=== PATIENT | male | born 1950 | race Caucasian/White ===

== ENCOUNTER 2017-06-08 10:11 | Day surgery (SDC) | payer OTHER ==
[2017-06-07 15:42] VITALS: BMI 23.3
--- NOTE | 2017-06-08 12:01 | HP ---
Satellite H - Chief Complaint Chief Complaint: right ulna fx - Past Medical History Allergies/Adverse Reactions: Allergies Allergy/AdvReac Type Severity Reaction Status Date / Time No Known Allergies Allergy Verified 06/07/17 15:12 - Current Medications Current Medications: Home Medications Medication Instructions Recorded Allopurinol [Zyloprim -] 100 mg PO DAILY 06/07/17 Cholecalciferol (Vitamin D3) 5,000 unit PO WEEKLY 06/07/17 [Vitamin D3] [place]-3 Fatty Acids [[place]ley-3] 300 mg PO 06/07/17 Tamsulosin HCl 0.4 mg PO 06/07/17 Hydrocodone/Acetaminophen [[place] 1 each PO Q6H PRN #40 tablet MDD 4 06/08/17 5-325 Tablet] Satellite Physical Exam - Physical Examination Vital Signs: Vital Signs Period Temp Pulse Resp BP Sys/Gonzalez Pulse Ox Last 24 Hr 99-99 General Appearance: Well Nourished, Well Developed, Alert & Oriented x3 ENT: Clear Lung: Normal air movement Heart: Regular rate & rhythm Extremities: Other (right forearm- + swelling, + ttp, nvi xrays show dsiplaced ulna fx) Neurological: Intact, Alert, Oriented Satellite Impression/Plan - Impression/Plan Impression: right ulna fx Operative Procedure: right ulna orif Date to be Performed: 06/08/17
[2017-06-08] MEDS ORDERED: ROPIVACAINE HCL 0.5% 30ML VIAL ONE (13:01)
[2017-06-08] MEDS ORDERED: DEXAMETHASONE SOD PHOSPHATE/PF 10 MG/ML SDV ONE (13:01)
[2017-06-08] MEDS ORDERED: LIDOCAINE HCL 1%, 10 MG/ML (20ML VIAL) ONE (13:41)
[2017-06-08] MEDS ORDERED: BUPIVACAINE HCL/PF 0.5% (5MG/ML) 10 ML VIAL ONE (13:41)
--- NOTE | 2017-06-08 14:49 | OP ---
Operative Note - Note: Operative Date: 06/08/17 Pre-Operative Diagnosis: right ulna fracture Operation: ORIF ulnar shaft Implants: [place] titanium low profile plate, 6 screws Surgeon: Nickolas Liang Share Dairy Farmer: Arun Cates Anesthesiologist/REFUND CLERK: Erick Powell Anesthesia: Local, MAC Estimated Blood Loss (mls): 0 Drains, Volume Out (mls): 0 Blood Volume Replaced (mls): 0 Fluid Volume Replaced (mls): 700 Operative Report Dictated: Yes
[2017-06-08] MEDS ORDERED: LABETALOL HCL 5 MG/1 ML (100MG/20 ML VIAL) ONE (14:54)
[2017-06-08] MEDS ORDERED: PROMETHAZINE HCL 25 MG/1 ML VIAL IVPUSH PRN (15:00)
[2017-06-08] MEDS ORDERED: oxyCODONE HCL 5 MG TABLET PO PRN (15:00)
[2017-06-08] MEDS ORDERED: LACTATED RINGERS SOLUTION 1,000 ML IV SCH (15:00)
[2017-06-08] MEDS ORDERED: ONDANSETRON 4 MG/2 ML VIAL IVPUSH PRN (15:00)
[2017-06-08] MEDS ORDERED: LABETALOL HCL 5 MG/1 ML (100MG/20 ML VIAL) IVPUSH ONE (15:06)
[2017-06-08] MEDS ORDERED: oxyCODONE HCL 5 MG TABLET PO ONE (17:04)
[2017-06-08] MEDS ORDERED: oxyCODONE HCL 5 MG TABLET ONE (17:05)
[2017-06-08 18:26] VITALS: BP 144/78; PULSE 98; TEMP 99
--- NOTE | 2017-06-10 14:21 | OP ---
DATE OF OPERATION: 06/08/2017 DATE OF DICTATION: 06/08/2017 PREOPERATIVE DIAGNOSIS: Right ulna fracture. POSTOPERATIVE DIAGNOSIS: Right ulna fracture. PROCEDURE: Open reduction internal fixation, right ulna. SURGEON: Delpihne Osorio M.D. LIPCOAT SPRAYER: Dontae Page ANESTHESIOLOGIST: Erick Powell M.D. ANESTHESIA: Right interscalene block. DRAINS: None. COMPLICATIONS: None. SPECIMEN: None. IMPLANTS USED: [place] low-profile straight plate, 6 hole, with 3 mL graft on bone graft, 5 screws and 1 lag screw. BLOOD LOSS: None. BLOOD GIVEN: None. FLUID REPLACEMENT: 700 mL. INDICATION: This patient is a 66-year-old right hand dominant male who sustained a right displaced ulna shaft fracture. After understanding the potential risks, complications, alternatives, benefits to surgery versus nonsurgical treatment, the patient elected to undergo this procedure. He understands the risk of nonunion, need for additional surgery, risk of infection, risk of need for plate removal and other potential risks and complications were discussed. DESCRIPTION OF PROCEDURE: Patient was brought to operating room, peripheral IV placed, IV sedation given, 1 g of IV Ancef was given, a right interscalene block was performed. The right upper extremity was prepped and draped in sterile fashion, elevated, exsanguinated with Esmarch bandage, tourniquet inflated to 250 mmHg. A longitudinal incision was marked out and made with a marking pen over the distal ulna. Subcutaneous hemostasis achieved with a bipolar cautery. Dissection done with Metzenbaum scissors to the lateral aspect of the ulna. Periosteal dissection was done with a number 15 scalpel blade and a periosteal elevator. This exposed the fracture site. It was irrigated and washed out. Two alligator forceps were utilized to joystick the fracture until it came together quite nicely. A [place] titanium low profile straight 5-hole plate was placed onto the fracture site. It then dented a bit distally to contour better. Did fit better. It was pinned in place with 2 temporary K-wires and x-rays were taken that showed excellent reduction of the fracture in position of the hardware. Next the plate was removed, the fracture opened again, and 3 mL of Drury putty was placed in and around the ulnar shaft fracture. The plate was then reapplied and held in place with K-wires. X-rays were taken again, and there was excellent anatomic reduction of the fracture, and the hardware was in excellent position. Next I put in a lag screw, it was 22 mm in length, 3.5 mm in diameter, fully threaded in the standard fashion; it held the bone together quite nicely. The alligator forceps were removed and the screw held the reduction. Next using standard drilling technique, I put in 1 fully threaded nonlocking screw distally, 1 fully threaded nonlocking screw proximally, tried to get whatever compression I could. Repeat x-rays were taken; it all looked quite good, and therefore another distal locking screw was placed and proximal nonlocking and locking screws were placed. X-rays were taken in the AP, lateral, and multiple oblique planes, and I was very happy with the anatomic reduction of the ulna and the position of all the hardware. Next, the deep fascial was closed over the plate with 2-0 Vicryl suture, the deep dermal layer closed with 4-0 undyed Vicryl, final skin reapproximation was done with a running subcuticular 4-0 Biosyn stitch. The area was then washed and dried and covered with Steri-Strips, 4x4 gauze, Webril, fluffs between the fingers, and a 5-inch Ortho-Glass ulnar gutter splint was placed, wrapped with Navneet and Coban, tourniquet was taken down after total tourniquet time of about 55 minutes. There were no complications during the case. The patient tolerated the procedure quite well and was brought to the ambulatory recovery in good condition. DELPHINE OSORIO M.D. [id number]
== END 2017-06-08 18:25 | disposition home or self-care (01) ==
LOC: JASU-SURG 10:11
PROVIDERS: ATTEND Orthopaedic Surgery
PROC: 0PSK04Z Reposition Right Ulna with Internal Fixation Device, Open Approach (ICD-10-PCS; principal; 2017-06-08 11:30)
DX: S52.291A Other fracture of shaft of right ulna, initial encounter for closed fracture (principal); X58.XXXA Exposure to other specified factors, initial encounter; Y93.9 Activity, unspecified; Y92.9 Unspecified place or not applicable; Y99.9 Unspecified external cause status
CPT/HCPCS: 25545; C1713; 76000-TC-FY; 94760

== ENCOUNTER 2017-08-02 14:41 | Observation (INO) | payer OTHER ==
--- NOTE | 2017-08-02 14:49 | PDOC ---
History of Present Illness <Jamal Veronica - Last Filed: 08/02/17 16:38> - History of Present Illness Initial Comments: 08/02/17 14:58 Mr. Hoover is a 66 yo male w/ pmh of HTN and HLD who presents for evaluation after syncopal event earlier today. He reports he was feeling his normal self and making lunch when he fainted and hit the back of his head. He currently endorses circumferential headache however otherwise feels his normal self. The patient denies chest pain, shortness of breath, and dizziness. Denies fever , chills, nausea, vomit, diarrhea and constipation. Denies dysuria, frequency, urgency and hematuria. Allergies: NKDA <Camron Uriostegui - Last Filed: 08/02/17 16:43> - General Stated Complaint: SYNCOPE Time Seen by Provider: 08/02/17 14:49 Past History <Jamal Veronica - Last Filed: 08/02/17 16:38> - Past Medical History Anemia: No Asthma: No Cancer: No Cardiac Disorders: No CVA: No COPD: No CHF: No Dementia: No Diabetes: No GI Disorders: No Disorders: No (bph) HTN: No Hypercholesterolemia: Yes (untreated) Liver Disease: No Seizures: No Thyroid Disease: No - Surgical History Abdominal Surgery: No Appendectomy: No Cardiac Surgery: No Cholecystectomy: No Lung Surgery: No Neurologic Surgery: No Orthopedic Surgery: Yes (left ankle rx) - Suicide/Smoking/Psychosocial Hx Smoking History: Former smoker Have you smoked in the past 12 months: No If you are a former smoker, when did you quit?: 25 yrs ago Hx Alcohol Use: No Drug/Substance Use Hx: No Substance Use Type: None Hx Substance Use Treatment: No <Camron Uriostegui - Last Filed: 08/02/17 16:43> - Past Medical History Allergies/Adverse Reactions: Allergies Allergy/AdvReac Type Severity Reaction Status Date / Time No Known Allergies Allergy Verified 08/02/17 14:53 Home Medications: Ambulatory Orders Allopurinol [Zyloprim -] 100 mg PO DAILY 06/07/17 Tamsulosin HCl 0.4 mg PO DAILY 06/07/17 Famotidine [Pepcid] 40 mg PO HS 08/02/17 Pantoprazole Sodium 40 mg PO DAILY 08/02/17 Review of Systems - Review of Systems Comments:: 08/02/17 15:01 GENERAL/CONSTITUTIONAL: No fever or chills. No weakness. HEAD, EYES, EARS, NOSE AND THROAT: No change in vision. No ear pain or discharge. No sore throat. CARDIOVASCULAR: No chest pain or shortness of breath RESPIRATORY: No cough, wheezing, or hemoptysis. GASTROINTESTINAL: No nausea, vomiting, diarrhea or constipation. GENITOURINARY: No dysuria, frequency, or change in urination. MUSCULOSKELETAL: No joint or muscle swelling or pain. No neck or back pain. SKIN: No rash NEUROLOGIC: +Acute LOC episode as described. Current headache circumferencially. No vertigo or change in strength/sensation. ENDOCRINE: No increased thirst. No abnormal weight change HEMATOLOGIC/LYMPHATIC: No anemia, easy bleeding, or history of blood clots. ALLERGIC/IMMUNOLOGIC: No hives or skin allergy. <Camron Uriostegui - Last Filed: 08/02/17 16:43> *Physical Exam - Vital Signs Last Vital Signs Temp Pulse Resp BP Pulse Ox 89 18 150/97 99 08/02/17 14:52 08/02/17 14:52 08/02/17 14:52 08/02/17 14:52 <Jamal Veronica - Last Filed: 08/02/17 16:38> - Physical Exam Comments: 08/02/17 15:01 GENERAL: Awake, alert, and fully oriented, in no acute distress HEAD: +Mild hematoma noted at back of head where patient hit floor. Normocephalic, atraumatic EYES: PERRLA, EOMI, sclera anicteric, conjunctiva clear ENT: Auricles normal inspection, hearing grossly normal, nares patent, oropharynx clear without exudates. Moist mucosa NECK: Normal ROM, supple, no lymphadenopathy, JVD, or masses LUNGS: No distress, speaks full sentences, clear to auscultation bilaterally HEART: Regular rate and rhythm, normal S1 and S2, no murmurs, rubs or gallops, peripheral pulses normal and equal bilaterally. ABDOMEN: Soft, nontender, normoactive bowel sounds. No guarding, no rebound. No masses EXTREMITIES: Normal inspection, Normal range of motion, no edema. No clubbing or cyanosis. NEUROLOGICAL: Cranial nerves II through XII grossly intact. Normal speech, normal gait, no focal sensorimotor deficits SKIN: Warm, Dry, normal turgor, no rashes or lesions noted. <Camron Uriostegui - Last Filed: 08/02/17 16:43> ED Treatment Course - LABORATORY CBC & Chemistry Diagram: 08/02/17 15:00 08/02/17 15:00 - ADDITIONAL ORDERS Additional order review: Laboratory Results 08/02/17 08/02/17 15:00 15:00 Sodium 140 Potassium 4.2 Chloride 106 Carbon Dioxide 24 Anion Gap 10 BUN 18 Creatinine 1.4 H Creat Clearance w eGFR 50.86 Random Glucose 142 H Calcium 8.8 Total Bilirubin 0.5 AST 24 ALT 32 Alkaline Phosphatase 107 Creatine Kinase 75 Troponin I < 0.02 Total Protein 6.9 Albumin 3.8 Urine Color Ltyellow Urine Appearance Clear Urine pH 6.0 Ur Specific Thomas 1.014 Urine Protein Negative Urine Glucose (UA) Negative Urine Ketones Negative Urine Blood Negative Urine Nitrite Negative Urine Bilirubin Negative Urine Urobilinogen Negative Ur Leukocyte Esterase Negative 08/02/17 15:00 RBC 4.54 MCV 95.9 MCHC 33.2 RDW 13.1 MPV 11.3 H Neutrophils % 51.7 Lymphocytes % 33.0 Monocytes % 10.5 H Eosinophils % 3.9 Basophils % 0.9 - RADIOLOGY Radiology Studies Ordered: Category Date Time Status CHEST X-RAY PORTABLE* [RAD] Stat Radiology 08/02/17 15:46 Ordered <Jamal Veronica - Last Filed: 08/02/17 16:38> - LABORATORY CBC & Chemistry Diagram: 08/02/17 15:00 08/02/17 15:00 <Camron Uriostegui - Last Filed: 08/02/17 16:43> Medical Decision Making - Medical Decision Making 08/02/17 16:38 Accepted for obs tele by Radha Mccormack, signout given to MALLORY Duncan. <Jamal Veronica - Last Filed: 08/02/17 16:38> - Medical Decision Making 08/02/17 16:42 Mr. Hoover is a 66 yo male w/ pmh as described who presents for evaluation post fall. Patient labs grossly unconcerning as below, however given sudden onset of LOC w/out explained cause with admit for overnight evaluation. Discussed with MALLORY Duncan for Dr. Garcia who will admit for obs tele. <Camron Uriostegui - Last Filed: 08/02/17 16:43> *DC/Admit/Observation/Transfer - Discharge Dispostion Decision to Admit order: Yes <Jamal Veronica - Last Filed: 08/02/17 16:38> - Discharge Dispostion Decision to Admit order: Yes <Camron Uriostegui - Last Filed: 08/02/17 16:43> Diagnosis at time of Disposition: Syncope and collapse - Referrals Referrals: Misti Garcia MD [Primary Care Provider] -
[2017-08-02 14:54] VITALS: BMI 23.3
--- NOTE | 2017-08-02 15:14 | EKG ---
Test Reason : Blood Pressure : / mmHG Vent. Rate : 086 BPM Atrial Rate : 086 BPM P-R Int : 146 ms QRS Dur : 076 ms QT Int : 342 ms P-R-T Axes : 050 016 060 degrees QTc Int : 409 ms NORMAL SINUS RHYTHM NORMAL ECG NO PREVIOUS ECGS AVAILABLE Confirmed by MD Antelmo, Zev ([id number]) on 08/02/2017 3:14:26 PM Referred By: Confirmed By:Zev Rodrigse MD
--- NOTE | 2017-08-02 15:21 | PDOC ---
Attending Attestation - Resident Resident Name: Camron Uriostegui - ED Attending Attestation I have performed the following: I have examined & evaluated the patient, The case was reviewed & discussed with the resident, I agree w/resident's findings & plan - HPI HPI: 08/02/17 15:16 66y/o M h/p high chol, BPH presents BIBA after syncope. Patient was in his usual state of good health and this afternoon reports syncope without prodrome, question 1 or 2 seconds of lightheadedness. No chest pain or palpitations, the patient fell to the ground striking his head and was unresponsive for 1-2 minutes, then woke up and is now complaining of mild but improving headache but no other complaints. unlimited ET at baseline, does not recall stress/echo in the past. no recent infection/dehydration complaints. - Physicial Exam PE: 08/02/17 15:18 VSS, atraumatic neuro intact s1s2 rrr, no audible murmur or ectopy no edema/calf ttp - Medical Decision Making 08/02/17 15:21 66-year-old male with syncope, no other cardiopulmonary or infectious or metabolic complaints. Neurologically intact. Labs, urinalysis EKG, chest x-ray CT head given injury Likely overnight telemetry monitoring, will discuss with Dr. Garcia, the patient's primary physician. <Jamal Veronica - Last Filed: 08/02/17 15:16> - Medical Decision Making 08/02/17 16:38 Case discussed with MALLORY Duncan from Dr. Garcia's office at 16:37, who agrees to admit to Telemetry observation. <Nehal Mejia - Last Filed: 08/02/17 16:39> Heart Score/ECG Review #1 ECG reviewed & interpreted by me at: 14:56 General ECG Interpretation: Sinus Rhythm, Normal Rate (86), Normal Intervals ( qtc 409), No acute ischemic changes <Jamal Veronica - Last Filed: 08/02/17 15:16> Attestations - Attestations Documentation prepared by Nehal Mejia, acting as medical consultant for Jamal Veronica MD. <Nehal Mejia - Last Filed: 08/02/17 16:39>
[2017-08-02 15:30] LABS: URINE APPEARANCE CLEAR; URINE BILIRUBIN NEGATIVE (<2.0 mg/dL); URINE COLOR LTYELLOW; URINE GLUCOSE (UA) NEGATIVE (NEGATIVE); URINE KETONE NEGATIVE (NEGATIVE); URINE LEUK ESTERASE NEGATIVE (NEGATIVE); URINE NITRITE NEGATIVE (NEGATIVE); URINE PROTEIN NEGATIVE (NEGATIVE); URINE UROBILINOGEN NEGATIVE mg/dL (0.2-1.0)
[2017-08-02 15:31] LABS: BASO % 0.9 % (0-2.0); EOS % 3.9 % (0-4.5); HEMATOCRIT 43.6 % (35.4-49); HEMOGLOBIN 14.5 GM/dL (11.7-16.9); MCH 31.9 pg (25.7-33.7); MCHC 33.2 g/dl (32.0-35.9); MEAN CELL VOLUME 95.9 fl (80-96); MEAN PLT VOLUME 11.3 fl (7.5-11.1); MONO % 10.5 % (3.8-10.2); NEUT % 51.7 % (42.8-82.8); PLATELET COUNT 178 K/MM3 (134-434); RBC 4.54 M/mm3 (4.00-5.60); RDW 13.1 % (11.9-15.9); WHITE BLOOD COUNT 6.3 K/mm3 (4.0-10.0)
[2017-08-02 16:00] LABS: ALBUMIN 3.8 g/dl (3.4-5.0); ANION GAP 10 (8-16); BILIRUBIN,TOTAL 0.5 mg/dL (0.2-1.0); BLOOD UREA NITROGEN 18 mg/dL (7-18); CALCIUM 8.8 mg/dL (8.5-10.1); CHLORIDE 106 mmol/L (98-107); CO2 24 mmol/L (21-32); CREATININE 1.4 mg/dL (0.7-1.3); GLUCOSE,RANDOM 142 mg/dL (74-106); POTASSIUM 4.2 mmol/L (3.5-5.1); SGOT/AST 24 U/L (15-37); SGPT/ALT 32 U/L (12-78); SODIUM 140 mmol/L (136-145); TOT PROT 6.9 g/dl (6.4-8.2)
[2017-08-02 16:03] LABS: ALK PHOS 107 U/L (45-117)
--- NOTE | 2017-08-02 18:46 | CON.CARD ---
Consult Consult Specialty:: cardio - History of Present Illness Chief Complaint: syncope History of Present Illness: 66 yo male here for syncope. was sitting at home today, stood up and immediately felt dizzy for approximately 1 second then passed out. noted him unconscious for approx 1 minute, per pt's report of 's description to him after the fact. she noted his eyes rolled back, and he seemed to stop breathing possibly during this time. he had no diaphoresis, palpitations, cp, sob pre or post that event. had similar episode couple of times in past 3 weeks when felt dizzy upon standing but it passed immediately. this is first episode of syncope. walks 3 flights of stairs plus ad micheline. no cp, sob, palpitations hx. drank green juice, glass of milk, and can of ensure in am. no other food or fluid intake, and hadn't eaten lunch yet when the above occurred at approx 1:30 pm. no caffeine intake or etoh today. takes tamsulosin at night--took at usual time last night. hit back of his head when fell. now has bifrontal mild YANEZ. o/w feels well he says. PMH: HPL reported (not on meds) BPH GERD denies cigs denies HTN, DM no FH of CAD - Alcohol/Substance Use Hx Alcohol Use: No - Smoking History Smoking history: Former smoker Have you smoked in the past 12 months: No If you are a former smoker, when did you quit?: 25 yrs ago Home Medications - Allergies Allergies/Adverse Reactions: Allergies Allergy/AdvReac Type Severity Reaction Status Date / Time No Known Allergies Allergy Verified 08/02/17 14:53 - Home Medications Home Medications: Ambulatory Orders Allopurinol [Zyloprim -] 100 mg PO DAILY 06/07/17 Tamsulosin HCl 0.4 mg PO DAILY 06/07/17 Famotidine [Pepcid] 40 mg PO HS 08/02/17 Pantoprazole Sodium 40 mg PO DAILY 08/02/17 Review of Systems - Review of Systems Constitutional: denies: Chills, Fever Eyes: denies: Eye Pain HENT: denies: Nasal Congestion Neck: denies: Stiffness Cardiovascular: denies: Palpitations Respiratory: denies: Orthopnea, PND Gastrointestinal: denies: Diarrhea, Rectal Bleeding Genitourinary: denies: Burning, Hematuria Musculoskeletal: denies: Muscle Pain Integumentary: denies: Rash Neurological: reports: Syncope. denies: Numbness, Seizure Endocrine: denies: Excessive Sweating Hematology/Lymphatic: denies: Excessive Bleeding Vital Signs: Vital Signs Temperature 98.1 F 08/02/17 18:37 Pulse Rate 69 08/02/17 18:37 Respiratory Rate 16 08/02/17 18:37 Blood Pressure 137/83 08/02/17 18:37 O2 Sat by Pulse Oximetry (%) 97 08/02/17 18:37 Constitutional: Yes: Well Nourished, No Distress Eyes: No: Sclera Icterus HENT: No: Nasal Congestion Neck: No: Decreased ROM Respiratory: Yes: CTA Bilaterally. No: Accessory Muscle Use, Rales, Wheezes Gastrointestinal: Yes: Normal Bowel Sounds. No: Distention, Hepatomegaly, Palpable Mass, Tenderness Cardiovascular: Yes: Regular Rate and Rhythm JVD: No Carotid Bruit: No PMI: Non-Displaced Heart Sounds: Yes: S1, S2. No: Gallop Murmur: No: Systolic Murmur, Diastolic Murmur Musculoskeletal: Yes: Other (No kyphosis) Extremities: No: Cold, Cyanosis Edema: No Peripheral Pulses: 2+ Left Carotid, 2+ Right Carotid, 2+ Left Doralis Pedis, 2+ Right Dorsalis Pedis Integumentary: No: Jaundice Neurological: Yes: Alert, Oriented (x3) Psychiatric: No: Agitated - Other Data Labs, Other Data: CBC, BMP 08/02/17 15:00 08/02/17 15:00 Troponin, BNP 08/02/17 15:00 Troponin I < 0.02 Troponin, BNP 08/02/17 15:00 Troponin I < 0.02 Laboratory Tests 08/02/17 08/02/17 15:00 15:00 WBC 6.3 Hgb 14.5 Plt Count 178 Sodium 140 Potassium 4.2 Carbon Dioxide 24 BUN 18 Creatinine 1.4 H AST 24 ALT 32 Creatine Kinase 75 Troponin I < 0.02 Assessment/Plan EKG: NSR, normal axis, normal intervals. no path q's. no LVH. no ST-T abnormality. CT head: no acute intracranial pathology syncope: -occurred immediately upon standing up, WITH BRIEF PRODROME OF DIZZINESS. -no palpitations. -ECG normal, phys exam normal. -has had few recent episodes of positional dizziness upon standing, suggesting a pattern of orthostatic hypotension as the culprit here. -had fairly small amt of po intake today, on very hot/humid day, prior to the event. -creat notably 1.4, though bun normal--prior baseline unknown to me. -recommend 24 hrs telemetry (ADMIT TO 4W/4S). check orthostatic VSs. check echo for LVEF, ETT. -if above benign, pt can be safely discharged home with rec.s to increase po fluids and observe for recurrent sx's as outpt HPL: -recent dx per pt -f/u routinely with pmd dr adams
[2017-08-02] MEDS: ATORVASTATIN CA 40 MG TABLET (FP) PO SCH (22:03)
[2017-08-02] MEDS ORDERED: ATORVASTATIN CA 40 MG TABLET (FP) ONE (22:34)
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
[2017-08-03 07:56] LABS: MCH 32.4 pg (25.7-33.7); MEAN CELL VOLUME 95.2 fl (80-96); MEAN PLT VOLUME 10.8 fl (7.5-11.1); PLATELET COUNT 168 K/MM3 (134-434); RBC 4.62 M/mm3 (4.00-5.60); RDW 13.4 % (11.9-15.9); WHITE BLOOD COUNT 7.5 K/mm3 (4.0-10.0)
[2017-08-03 08:37] LABS: ANION GAP 8 (8-16); BLOOD UREA NITROGEN 13 mg/dL (7-18); CALCIUM 9.4 mg/dL (8.5-10.1); CHLORIDE 106 mmol/L (98-107); CO2 25 mmol/L (21-32); GLUCOSE,RANDOM 103 mg/dL (74-106); MAGNESIUM 2.2 mg/dL (1.8-2.4); POTASSIUM 4.4 mmol/L (3.5-5.1); SODIUM 139 mmol/L (136-145)
[2017-08-03 08:43] LABS: CHOLESTEROL 203 mg/dL (50-200); CREATININE 1.2 mg/dL (0.7-1.3); HDL CHOLESTEROL 51 mg/dL (40-60); PHOSPHOROUS 3.3 mg/dL (2.5-4.9); TRIGLYCERIDES 144 mg/dL (35-160)
--- NOTE | 2017-08-03 09:13 | PN ---
Progress Note (short form) - Note Progress Note: Vital Signs Period Temp Pulse Resp BP Sys/Gonzalez Pulse Ox Last 24 Hr 97.6 F-98.3 F 63-89 14-18 124-158/71-103 97-100 CBC, BMP 08/03/17 07:40 08/03/17 07:40 Active Medications Allopurinol (Zyloprim -) 100 mg PO DAILY [facility] Aspirin (Ecotrin -) 81 mg PO DAILY [facility] Atorvastatin Calcium (Lipitor -) 40 mg PO HS [facility] Last Admin: 08/02/17 22:03 Dose: 40 mg Pneumococcal 13-Valent Conj Vacc (Prevnar 13 Syringe -) 0.5 ml IM .ONCE ONE Stop: 08/03/17 10:01 Ranitidine HCl (Zantac -) 300 mg PO HS [facility] Tamsulosin HCl (Flomax -) 0.4 mg PO DAILY@0830 [facility] Problem List - Problems (1) Syncope and collapse Code(s): R55 - SYNCOPE AND COLLAPSE (2) Headache due to injury of head and neck Code(s): S09.90XA - UNSPECIFIED INJURY OF HEAD, INITIAL ENCOUNTER; S19.9XXA - UNSPECIFIED INJURY OF NECK, INITIAL ENCOUNTER (3) Hyperlipemia Code(s): E78.5 - HYPERLIPIDEMIA, UNSPECIFIED (4) History of gout Code(s): Z87.39 - PERSONAL HISTORY OF DISEASES OF THE MS SYS AND CONN TISS (5) Orthostatic dizziness Code(s): R42 - DIZZINESS AND GIDDINESS (6) Vaso vagal episode Code(s): R55 - SYNCOPE AND COLLAPSE
[2017-08-03] MEDS: TAMSULOSIN HCL 0.4 MG CAP.ER.24H (FP) PO SCH (09:57)
[2017-08-03] MEDS: ALLOPURINOL 100 MG TABLET (FP) PO SCH (09:57)
[2017-08-03] MEDS: ASPIRIN COATED 81 MG TABLET.EC PO SCH (09:57)
[2017-08-03] MEDS ORDERED: PNEUMOC 13-VAL CONJ-DIP CRM/PF 0.5 ML DISP.SYRIN IM ONE (10:00)
--- NOTE | 2017-08-03 10:41 | EKG ---
Test Reason : Blood Pressure : / mmHG Vent. Rate : 068 BPM Atrial Rate : 068 BPM P-R Int : 148 ms QRS Dur : 082 ms QT Int : 378 ms P-R-T Axes : 047 038 066 degrees QTc Int : 401 ms NORMAL SINUS RHYTHM NORMAL ECG WHEN COMPARED WITH ECG OF 02-AUG-2017 14:56, NO SIGNIFICANT CHANGE WAS FOUND Confirmed by NITZA MELENDEZ MD ([id number]) on 08/03/2017 10:40:48 AM Referred By: Confirmed By:NITZA MELENDEZ MD
--- NOTE | 2017-08-03 11:39 | PN ---
Progress Note (short form) - Note Progress Note: S: 66 year old male with past medical history of hypercholesterolemia and recurring episodes of recurring postural lightheadedness, always occurring with standing up or prolonged standing, patient had severe lightheadedness and had transient loss of consciousness, hitting the back of his head on the floor. Denies having tinnitus or vertigo. No history of focal weakness reported. No seizures. History was obtained through PCP. Presently complaining of occipital headaches. History of hyper uracemia, BPH, and gastric disorder. Patient apparently has severe anxiety disorder according to his PCP. Active Medications Allopurinol (Zyloprim -) 100 mg PO DAILY [facility] Last Admin: 08/03/17 09:57 Dose: 100 mg Aspirin (Ecotrin -) 81 mg PO DAILY [facility] Last Admin: 08/03/17 09:57 Dose: 81 mg Atorvastatin Calcium (Lipitor -) 40 mg PO HS [facility] Last Admin: 08/02/17 22:03 Dose: 40 mg Ranitidine HCl (Zantac -) 300 mg PO [facility] Tamsulosin HCl (Flomax -) 0.4 mg PO DAILY@0830 [facility] Last Admin: 08/03/17 09:57 Dose: 0.4 mg O: 66 year old male was in no acute distress. No pallor, cyanosis, clubbing, or jaundice. Last Vital Signs Temp Pulse Resp BP Pulse Ox 98.2 F 82 14 Supine and standing 160/90 mmHg 98 08/03/17 09:00 08/03/17 09:00 08/03/17 09:00 08/03/17 09:00 08/03/17 09:00 NECK: Supple, no JVD, negative HJR, carotids were equal and upstrokes were normal, no thyromegaly appreciated. HEART: PMI was in the 5th intercostal space, no heaves or thrills, S1 and S2 were normal. No murmurs or gallops were appreciated. LUNGS: Clear on auscultation bilaterally. ABDOMEN: Soft, nontender, no hepatosplenomegaly appreciated, and no palpable masses were felt. EXTREMITIES: No calf tenderness or dependent edema. Pulses are normal. CBC, BMP 08/03/17 07:40 08/03/17 07:40 Laboratory Results - last 24 hr 08/02/17 08/02/17 08/02/17 15:00 15:00 15:00 WBC 6.3 RBC 4.54 Hgb 14.5 Hct 43.6 MCV 95.9 MCH 31.9 MCHC 33.2 RDW 13.1 Plt Count 178 MPV 11.3 H Absolute Neuts (auto) 3.3 Neutrophils % 51.7 Lymphocytes % 33.0 Monocytes % 10.5 H Eosinophils % 3.9 Basophils % 0.9 Nucleated RBC % 0 Sodium 140 Potassium 4.2 Chloride 106 Carbon Dioxide 24 Anion Gap 10 BUN 18 Creatinine 1.4 H Creat Clearance w eGFR 50.86 Random Glucose 142 H Calcium 8.8 Phosphorus Magnesium Total Bilirubin 0.5 AST 24 ALT 32 Alkaline Phosphatase 107 Creatine Kinase 75 Troponin I < 0.02 Total Protein 6.9 Albumin 3.8 Triglycerides Cholesterol Total LDL Cholesterol HDL Cholesterol Urine Color Ltyellow Urine Appearance Clear Urine pH 6.0 Ur Specific [place] 1.014 Urine Protein Negative Urine Glucose (UA) Negative Urine Ketones Negative Urine Blood Negative Urine Nitrite Negative Urine Bilirubin Negative Urine Urobilinogen Negative Ur Leukocyte Esterase Negative 08/03/17 08/03/17 07:40 07:40 WBC 7.5 RBC 4.62 Hgb 15.0 Hct 44.0 MCV 95.2 MCH 32.4 MCHC 34.0 RDW 13.4 Plt Count 168 MPV 10.8 Absolute Neuts (auto) Neutrophils % Lymphocytes % Monocytes % Eosinophils % Basophils % Nucleated RBC % Sodium 139 Potassium 4.4 Chloride 106 Carbon Dioxide 25 Anion Gap 8 BUN 13 D Creatinine 1.2 Creat Clearance w eGFR > 60 Random Glucose 103 D Calcium 9.4 Phosphorus 3.3 Magnesium 2.2 Total Bilirubin AST ALT Alkaline Phosphatase Creatine Kinase 81 Troponin I < 0.02 Total Protein Albumin Triglycerides 144 Cholesterol 203 H Total LDL Cholesterol 136 H HDL Cholesterol 51 Urine Color Urine Appearance Urine pH Ur Specific [place] Urine Protein Urine Glucose (UA) Urine Ketones Urine Blood Urine Nitrite Urine Bilirubin Urine Urobilinogen Ur Leukocyte Esterase Impression: 1. Occipital headache, etiology: a. Secondary to uncontrolled hypertension b. Recent fall and loss of consciousness 2. History of hyperuracemia. 3. Recurring postural lightheadedness and recent syncopal episode, etiology: a. Vasodepressor syncope needs exclusion Recommendations: 1. Add Toprol XL 25 mg PO daily after stress test is done. 2. Check BP supine and standing. 3. Echocardiogram. 4. Consider tilt table test. Documentation prepared by Lorena Cain, acting as a clinical specialist medical device for Konrad Roberts MD. Problem List - Problems (1) Hypertension Code(s): I10 - ESSENTIAL (PRIMARY) HYPERTENSION (2) Headache Code(s): R51 - HEADACHE (3) Hyperlipemia Code(s): E78.5 - HYPERLIPIDEMIA, UNSPECIFIED (4) Orthostatic dizziness Code(s): R42 - DIZZINESS AND GIDDINESS (5) Syncope and collapse Code(s): R55 - SYNCOPE AND COLLAPSE
[2017-08-03] MEDS ORDERED: metoPROLOL SUCCINATE 25 MG TAB.SR.24H (FP) PO ONE (13:00)
--- NOTE | 2017-08-03 15:42 | TRE ---
Protocol Name : AMANDA Max Work Load (METS*10) : 46 Time In Exercise Phase : 00:03:00 Max. Systolic BP : 172 mmHg Max Diastolic BP : 90 mmHg Max Heart Rate : 142 BPM Max Predicted Heart Rate : 155 BPM Attending Physician : DR. MELENDEZ Reason For Termination : Target Heart Rate Achieved Reason for Test : Syncope Stress Protocol : AMANDA Rest HR : 107 BPM PeakEx METs : 4.6 METS Recovery ECG Response (OLD) : Diagnosis : baseline ekg sr wnl 3 min amanda protocol - test terminated due to reaching target HR negative EST for signs of inducible ischemia, arhythhmia or ischemic symptoms Confirmed by AL MILLIGAN, NITZA ([id number]) on 08/03/2017 3:41:41 PM
--- NOTE | 2017-08-03 20:19 | CON.NEURO ---
Consult - History of Present Illness Chief Complaint: AMS History of Present Illness: 66 yo male W PMH of HLD, recently seen with c/o episodes of dizziness -- carotids done --negative / had recent cardiac work up -- also negative. Today presents to ER with episode of syncope. He reports was squatting working on "something" upon standing up felt lightheaded / dizzy then fell backwards and hit his head. witnessed event, she states he yelled out upon standing then his eyes rolled back and he fell backwards hitting his head, she tried to wake him up but remained unresponsive for several minutes. She states she hit him on the chest and attempted "resuscitation" however unable to asses properly. I saw and examined the pt ; hx as above ; he c/o headache on the back of his head; he denies tongue biting , urinary incontinence; episode was witness by his , he dose not recall the detail. - Past Medical History Infectious Disease: Yes: Other - Alcohol/Substance Use Hx Alcohol Use: No History of Substance Use: reports: None - Smoking History Smoking history: Former smoker Have you smoked in the past 12 months: No If you are a former smoker, when did you quit?: 25 yrs ago - Social History ADL: Independent History of Recent Travel: No Home Medications - Allergies Allergies/Adverse Reactions: Allergies Allergy/AdvReac Type Severity Reaction Status Date / Time No Known Allergies Allergy Verified 08/02/17 14:53 - Home Medications Home Medications: Ambulatory Orders Allopurinol [Zyloprim -] 100 mg PO DAILY 06/07/17 Tamsulosin HCl 0.4 mg PO DAILY 06/07/17 Famotidine [Pepcid] 40 mg PO HS 08/02/17 Pantoprazole Sodium 40 mg PO DAILY 08/02/17 Review of Systems - Review of Systems Constitutional: reports: No Symptoms Eyes: reports: No Symptoms Neck: reports: Pain on Movement Cardiovascular: reports: No Symptoms Respiratory: reports: No Symptoms Gastrointestinal: reports: No Symptoms Genitourinary: reports: No Symptoms Integumentary: reports: No Symptoms Endocrine: reports: No Symptoms Physical Exam-Neuro Vital Signs: Vital Signs Temperature 98.2 F 08/03/17 17:00 Pulse Rate 67 08/03/17 17:00 Respiratory Rate 18 08/03/17 17:00 Blood Pressure 139/93 08/03/17 17:00 O2 Sat by Pulse Oximetry (%) 98 08/03/17 09:00 Constitutional: Yes: Well Nourished, No Distress Neck: Yes: WNL Cardiovascular: Yes: Regular Rate and Rhythm Respiratory: Yes: CTA Bilaterally Musculoskeletal: Yes: WNL Edema: LUE: 2+, RUE: 2+, LLE: 2+, RLE: 2+ Psychiatric: Yes: WNL Labs: CBC, BMP 08/03/17 07:40 08/03/17 07:40 - Neuro Exam Level Of Consciousness: Yes: Oriented to Person, Oriented to Place, Oriented to Time Eyes: Yes: PERRLA Speech: WNL Cranial Nerves II-XII Intact: Yes Gag: Present DTR's: 2+ Left Bicep, 2+ Right Bicep, 2+ Left Tricep, 2+ Right Tricep, 2+ Left Brachioradialis, 2+ Right Brachioradialis, 2+ Left Achilles, 2+ Right Achilles Babinski: Absent Response to light touch: Normal Response to pain prick: Normal Coordination: Normal: Finger to Nose, Heel to [place] Motor Strength: 5/5: Left Arm, Right Arm, Left Leg, Right Leg Imaging - Results Cat Scan: Image Reviewed (No acute finding or bleed.) Problem List - Problems (1) Syncope and collapse Code(s): R55 - SYNCOPE AND COLLAPSE (2) Headache Code(s): R51 - HEADACHE Assessment/Plan 66 yo male W PMH of HLD, recently seen with c/o episodes of dizziness p/w ? syncopy . Given the description of eyes rolling back and gaining consciousness with delay is suggestive of possible seizure activity rather than syncopy . I suggest : -MRI / A rain wo -EEG routine -Seizure/ fall precautions- no driving, taking bathtub, lifting heavy obj , operating heavy machinery etc . -VNG as OP -meclizine PRN for dizziness -Tylenol PRN for headache -No need for AED for 1 episode , will start on AED if has another episode. - CARDIOLOGY INPUT Health maintenance per primary team. Thank You. Gregor Woody MD
[2017-08-03] MEDS: ATORVASTATIN CA 40 MG TABLET (FP) PO SCH (21:24)
[2017-08-03] MEDS ORDERED: RANITIDINE HCL 150 MG TABLET (FP) PO SCH (22:00)
--- NOTE | 2017-08-04 08:42 | PN ---
Progress Note (short form) - Note Progress Note: No further seizures reported. MRI done, report pending but no obvious lesions to my eyes. Await MRI/MRA report. We'll f/u with you.
[2017-08-04] MEDS ORDERED: PT OWN MED DRAWER 7, Y5N ONE (09:14)
[2017-08-04] MEDS: ASPIRIN COATED 81 MG TABLET.EC PO SCH (09:30)
[2017-08-04] MEDS: ALLOPURINOL 100 MG TABLET (FP) PO SCH (09:30)
[2017-08-04] MEDS: TAMSULOSIN HCL 0.4 MG CAP.ER.24H (FP) PO SCH (09:30)
[2017-08-04 09:44] VITALS: BP 113/74; PULSE 60; TEMP 97.9
[2017-08-04] MEDS ORDERED: metoPROLOL SUCCINATE 25 MG TAB.SR.24H (FP) PO SCH (10:00)
--- NOTE | 2017-08-04 10:51 | DS ---
Physical Examination Vital Signs: Vital Signs Temperature 97.9 F 08/04/17 09:00 Pulse Rate 60 08/04/17 09:00 Respiratory Rate 18 08/04/17 09:00 Blood Pressure 113/74 08/04/17 09:00 O2 Sat by Pulse Oximetry (%) 96 08/04/17 09:00 Constitutional: Yes: Well Nourished Eyes: Yes: WNL, Conjunctiva Clear HENT: Yes: Atraumatic, Normocephalic Neck: Yes: Supple, Trachea Midline Cardiovascular: Yes: Regular Rate and Rhythm Respiratory: Yes: CTA Bilaterally Gastrointestinal: Yes: Normal Bowel Sounds, Soft ...Rectal Exam: Yes: Deferred Renal/: Yes: WNL Musculoskeletal: Yes: WNL Extremities: Yes: WNL Integumentary: Yes: WNL Neurological: Yes: Alert, Oriented ...Motor Strength: WNL Psychiatric: Yes: Alert, Oriented Labs: CBC, BMP 08/03/17 07:40 08/03/17 07:40 Discharge Summary Reason For Visit: SYNCOPE&COLLAPSE Current Active Problems Headache (Acute) Headache due to injury of head and neck (Acute) History of gout (Acute) Hyperlipemia (Acute) Hypertension (Acute) Orthostatic dizziness (Acute) Syncope and collapse (Acute) Vaso vagal episode (Acute) Hospital Course: 66 y/o male admitted for syncopal episode. MRI/ MRA normal. Metoprolol started for elevated BP. Plan to DC home today with family. Condition: Good - Instructions Referrals: Misti Garcia MD [Primary Care Provider] - Disposition: HOME - Home Medications Comprehensive Discharge Medication List: Ambulatory Orders Allopurinol [Zyloprim -] 100 mg PO DAILY 06/07/17 Tamsulosin HCl 0.4 mg PO DAILY 06/07/17 Famotidine [Pepcid] 40 mg PO HS 08/02/17 Pantoprazole Sodium 40 mg PO DAILY 08/02/17
--- NOTE | 2017-08-04 11:12 | PN ---
Progress Note (short form) - Note Progress Note: s: no cp sob palps dizzy o: Vital Signs Period Temp Pulse Resp BP Sys/Gonzalez Pulse Ox Last 24 Hr 97.9 F-98.5 F 58-80 18-18 111-139/73-94 96-98 Constitutional: Yes: Well Nourished, No Distress Eyes: No: Sclera Icterus Respiratory: Yes: CTA Bilaterally. No: Accessory Muscle Use, Rales, Wheezes Gastrointestinal: Yes: Normal Bowel Sounds. No: Distention, Hepatomegaly, Palpable Mass, Tenderness Cardiovascular: Yes: Regular Rate and Rhythm JVD: No Heart Sounds: Yes: S1, S2. No: Gallop Murmur: No: Systolic Murmur, Diastolic Murmur Musculoskeletal: Yes: Other (No kyphosis) Extremities: No: Cold, Cyanosis Edema: No Integumentary: No: Jaundice Neurological: Yes: Alert, Oriented (x3) Psychiatric: No: Agitated Current Medications Generic Name Dose Route Start Last Admin Trade Name Freq PRN Reason Stop Dose Admin Allopurinol 100 mg 08/03/17 10:00 08/04/17 09:30 Zyloprim - PO 100 mg DAILY [facility] Administration Aspirin 81 mg 08/03/17 10:00 08/04/17 09:30 Ecotrin - PO 81 mg DAILY [facility] Administration Atorvastatin Calcium 40 mg 08/02/17 22:00 08/03/17 21:24 Lipitor - PO 40 mg HS [facility] Administration Metoprolol Succinate 25 mg 08/04/17 10:00 08/04/17 09:30 Toprol Xl - PO 25 mg DAILY [facility] Administration Ranitidine HCl 300 mg 08/03/17 22:00 08/03/17 21:24 Zantac - PO 300 mg HS [facility] Administration Tamsulosin HCl 0.4 mg 08/03/17 08:30 08/04/17 09:30 Flomax - PO 0.4 mg DAILY@0830 [facility] Administration CBC, BMP 08/03/17 07:40 08/03/17 07:40 EKG: NSR, normal axis, normal intervals. no path q's. no LVH. no ST-T abnormality. tele: sr ett 07/2017: no ischemic changes or arrhythmias echo 07/2017: nl lv/rv, no sig valve path CT head: no acute intracranial pathology a/p: syncope: -occurred immediately upon standing up, WITH BRIEF PRODROME OF DIZZINESS. -no palpitations. -ECG, exam, tele, echo, ett all unremarkable -has had few recent episodes of positional dizziness upon standing, suggesting a pattern of orthostatic hypotension as the culprit here. -had fairly small amt of po intake today, on very hot/humid day, prior to the event. -creat notably 1.4, though bun normal--prior baseline unknown to me. -cardiac kate ok for dc with rec.s to increase po fluids and observe for recurrent sx's as outpt HPL: -recent dx per pt -f/u routinely with pmd dr adams
== END 2017-08-04 14:01 | disposition home or self-care (01) ==
LOC: JER 14:41 → J4W 16:38 → UNDOADMOB 16:38 → JERBED 16:38 → INTOOBSV 21:03 → OBSVTOIN 21:03 → J4W 08-03 05:04 → JERBED 08-03 05:04
PROVIDERS: ADMIT Family Medicine; ATTEND Family Medicine
PROC: 3E0234Z Introduction of Serum, Toxoid and Vaccine into Muscle, Percutaneous Approach (ICD-10-PCS; principal; 2017-08-02)
DX: R55 Syncope and collapse (principal); S09.90XA Unspecified injury of head, initial encounter; R51 Headache; R42 Dizziness and giddiness; I10 Essential (primary) hypertension; E78.5 Hyperlipidemia, unspecified; N40.0 Benign prostatic hyperplasia without lower urinary tract symptoms; Z87.891 Personal history of nicotine dependence; Z87.39 Personal history of other diseases of the musculoskeletal system and connective tissue; W18.39XA Other fall on same level, initial encounter; Y93.89 Activity, other specified; Y92.89 Other specified places as the place of occurrence of the external cause; Y99.9 Unspecified external cause status
CPT/HCPCS: 36415; 70450-TC; 70544-TC; 70551-TC; 71045-TC-FY; 80048; 80053; 80061; 81003; 82550; 82962; 83721; 83735; 84100; 84484; 85025; 85027; 87086; 90471; 90670; 93005; 93010; 93017; 93018; 93306-TC; 99285-25; G0378